=== PATIENT | male | born 1965 | race Caucasian/White ===

== ENCOUNTER → 2016-08-08 | Outpatient (CLI) | payer OTHER ==
[2016-08-08 10:55] LABS: WHITE BLOOD COUNT 6.9 K/mm3 (4.0-10.0)
[2016-08-08 10:56] LABS: MEAN CORPUSCULAR HEMOGLOBIN 41.2 pg (27.0-33.0); MEAN CORPUSCULAR HGB CONC 35.3 g/dl (32.0-36.5); MEAN CORPUSCULAR VOLUME 116.7 fl (80.0-96.0); RED CELL DISTRIBUTION WIDTH 14.5 % (11.5-14.5)
[2016-08-08 11:33] LABS: ALBUMIN 3.6 GM/DL (3.2-5.2); ALBUMIN/GLOBULIN RATIO 1.09 (1.00-1.93); ALKALINE PHOSPHATASE 91 U/L (45-117); ALT/SGPT 26 U/L (12-78); ANION GAP 9 MEQ/L (8-16); AST/SGOT 20 U/L (15-37); BILIRUBIN,DIRECT 0.1 MG/DL (0.0-0.2); BILIRUBIN,TOTAL 0.4 MG/DL (0.2-1.0); BLOOD UREA NITROGEN 11 MG/DL (7-18); CALCIUM LEVEL 8.6 MG/DL (8.5-10.1); CARBON DIOXIDE LEVEL 27 MEQ/L (21-32); CHLORIDE LEVEL 106 MEQ/L (98-107); CREATININE FOR GFR 1.31 MG/DL (0.70-1.30); GLOMERULAR FILTRATION RATE > 60.0 (>56); GLUCOSE, FASTING 80 MG/DL (70-105); POTASSIUM SERUM 4.5 MEQ/L (3.5-5.1); SODIUM LEVEL 142 MEQ/L (136-145); THYROXINE (T4) 6.7 UG/DL (4.5-12.0); TOTAL PROTEIN 6.9 GM/DL (6.4-8.2)
--- NOTE | 2016-08-08 20:43 | ECGEPIP ---
Stationary ECG Study [facility] Test Date: 2016-08-08 Pat Name: SEAMUS POSADA Department: Room: - Gender: M [place] Operator: ALFONSO : 1965 Requested By: Ivana Frost Order Number: [id number] Reading MD: Brandon Bonner Measurements Intervals [place] Rate: 62 P: 51 ND: 127 QRS: 12 QRSD: 97 T: 58 QT: 383 QTc: 391 Interpretive Statements SINUS RHYTHM WITH SINUS ARRHYTHMIA Low voltages NONSPECIFIC T-WAVE ABNORMALITY Comparison tracing not on file Electronically Signed On 08-08-2016 20:42:49 EST by Brandon Bonner
== END ==
LOC: M LAB 10:05
PROVIDERS: ATTEND Nurse Practitioner Psychiatric/Mental Health
DX: F41.9 Anxiety disorder, unspecified (principal); F32.9 Major depressive disorder, single episode, unspecified; R07.9 Chest pain, unspecified

== ENCOUNTER → 2016-10-06 | Outpatient (CLI) | payer OTHER ==
--- NOTE | 2016-10-06 10:39 | REP ---
Right upper quadrant sonography: History: Alcoholic cirrhosis of the liver without ascites. Findings: Scanning through the right upper quadrant of the abdomen demonstrates normal liver size. The liver is homogeneous except for a small 2 mm echogenic focus in the parenchyma of the right lobe consistent with a granuloma. No hepatic mass lesion is seen. There is no visible ascites in the right upper quadrant. The pancreas is obscured by abdominal gas. Common bile duct is normal measuring 0.4 cm in greatest diameter. There are two mobile gallstones in the dependent portion of the gallbladder. The gallbladder is small and contracted. The patient admitted to having toast with peanut butter for breakfast on the morning of the exam and not following the n.p.o. portion of the prep. No right renal abnormality is noted. The right kidney measures 12.0 x 5.0 x 4.9 cm. Impression: Cholelithiasis. Small granulomatous calcification in the liver. Otherwise negative. Signed by Atul Arnold MD 10/06/2016 10:46 A
== END ==
LOC: M RAD 09:07
PROVIDERS: ATTEND Internal Medicine Infectious Disease
DX: K70.30 Alcoholic cirrhosis of liver without ascites (principal); K80.20 Calculus of gallbladder without cholecystitis without obstruction

== ENCOUNTER → 2016-10-26 | Outpatient (REF) | payer OTHER ==
[2016-10-26 13:15] LABS: ALBUMIN 3.9 GM/DL (3.2-5.2); ALBUMIN/GLOBULIN RATIO 1.26 (1.00-1.93); ALKALINE PHOSPHATASE 80 U/L (45-117); ALT/SGPT 27 U/L (12-78); ANION GAP 6 MEQ/L (8-16); AST/SGOT 19 U/L (15-37); BILIRUBIN,TOTAL 0.5 MG/DL (0.2-1.0); BLOOD UREA NITROGEN 9 MG/DL (7-18); CARBON DIOXIDE LEVEL 28 MEQ/L (21-32); CHLORIDE LEVEL 106 MEQ/L (98-107); CREATININE FOR GFR 0.92 MG/DL (0.70-1.30); GLOMERULAR FILTRATION RATE > 60.0 (>56); GLUCOSE, FASTING 87 MG/DL (70-105); POTASSIUM SERUM 4.3 MEQ/L (3.5-5.1); SODIUM LEVEL 140 MEQ/L (136-145)
[2016-10-27 14:16] LABS: %CD3+CD4+CD8+ 1.3 % (Not Estab.); %CD3+CD4+CD8- 10.9 % (Not Estab.); %CD3+CD4-CD8+ 58.7 % (Not Estab.); %CD3+CD4-CD8- 1.5 % (Not Estab.); ABS CD3+CD4+CD8+ 18 /uL (Not Estab.); ABS CD3+CD4+CD8- 153 /uL (Not Estab.); ABS CD3+CD4-CD8+ 822 /uL (Not Estab.); ABS CD3+CD4-CD8- 21 /uL (Not Estab.); CD4/CD8 NYSDOH RATIO 0.19 (Not Estab.); Eosinophils 3 % (.); HCT 43.5 % (37.5-51.0); HEMATOLOGY COMMENTS Note: (.); HGB 15.7 g/dL (12.6-17.7); Monocytes 7 % (.); Neutrophils 67 % (.); WBC 6.7 x10E3/uL (3.4-10.8)
== END ==
LOC: M SFHCPLAZ 09:03
PROVIDERS: ATTEND Internal Medicine Infectious Disease
DX: B20 Human immunodeficiency virus [HIV] disease (principal); K70.30 Alcoholic cirrhosis of liver without ascites; Z12.5 Encounter for screening for malignant neoplasm of prostate; E29.1 Testicular hypofunction

== ENCOUNTER → 2017-04-19 | Outpatient (REF) | payer OTHER ==
[2017-04-19 12:40] LABS: INR 0.93
[2017-04-19 12:52] LABS: ALBUMIN 3.9 GM/DL (3.2-5.2); ALBUMIN/GLOBULIN RATIO 1.18 (1.00-1.93); ALKALINE PHOSPHATASE 74 U/L (45-117); ALT/SGPT 27 U/L (12-78); ANION GAP 9 MEQ/L (8-16); AST/SGOT 24 U/L (15-37); BILIRUBIN,TOTAL 0.6 MG/DL (0.2-1.0); BLOOD UREA NITROGEN 8 MG/DL (7-18); CALCIUM LEVEL 9.2 MG/DL (8.5-10.1); CARBON DIOXIDE LEVEL 26 MEQ/L (21-32); CHLORIDE LEVEL 106 MEQ/L (98-107); CREATININE FOR GFR 0.85 MG/DL (0.70-1.30); GLOMERULAR FILTRATION RATE > 60.0 (>56); GLUCOSE, FASTING 91 MG/DL (70-105); POTASSIUM SERUM 4.5 MEQ/L (3.5-5.1); SODIUM LEVEL 141 MEQ/L (136-145); TOTAL PROTEIN 7.2 GM/DL (6.4-8.2)
[2017-04-23 14:11] LABS: Eosinophils 5 % (.); HCT 43.9 % (37.5-51.0); HEMATOLOGY COMMENTS Note: (.); HGB 16.1 g/dL (12.6-17.7); Monocytes 8 % (.); Neutrophils 60 % (.); WBC 5.6 x10E3/uL (3.4-10.8)
== END ==
LOC: M SFHCPLAZ 10:18
PROVIDERS: ATTEND Internal Medicine Infectious Disease
DX: K70.30 Alcoholic cirrhosis of liver without ascites (principal); B20 Human immunodeficiency virus [HIV] disease

== ENCOUNTER → 2017-08-07 | Outpatient (REF) | payer OTHER ==
[2017-08-07 12:38] LABS: APPEARANCE, URINE CLEAR (CLEAR); BACTERIA, URINE AUTO NEGATIVE (NEGATIVE); BILIRUBIN, URINE AUTO NEGATIVE (NEGATIVE); BLOOD, URINE BLOOD NEGATIVE (NEGATIVE); COLOR, URINE YELLOW (YELLOW); GLUCOSE, URINE (UA) AUTO NEGATIVE (NEGATIVE); KETONE, URINE AUTO NEGATIVE (NEGATIVE); LEUKOCYTE ESTERASE, URINE AUTO NEGATIVE (NEGATIVE); MUCUS, URINE SMALL (NEGATIVE); NITRITE, URINE AUTO NEGATIVE (NEGATIVE); PROTEIN, URINE AUTO NEGATIVE (NEGATIVE); RBC, URINE AUTO 0 /HPF (0-3); SPECIFIC GRAVITY URINE AUTO 1.008 (1.002-1.035); SQUAMOUS EPITHELIAL CELL UR AU 0 /HPF (0-6); UROBILINOGEN, URINE AUTO 0.2 mg/dL (0.0-2.0); WBC, URINE AUTO 0 /HPF (0-3)
[2017-08-07 12:45] LABS: INR 0.95; PROTHROMBIN TIME 12.7 SECONDS (12.4-14.5)
[2017-08-07 13:06] LABS: ALBUMIN 3.9 GM/DL (3.2-5.2); ALBUMIN/GLOBULIN RATIO 1.18 (1.00-1.93); ALKALINE PHOSPHATASE 83 U/L (45-117); ALT/SGPT 23 U/L (12-78); ANION GAP 10 MEQ/L (8-16); AST/SGOT 18 U/L (7-37); BILIRUBIN,TOTAL 0.6 MG/DL (0.2-1.0); BLOOD UREA NITROGEN 10 MG/DL (7-18); CALCIUM LEVEL 8.4 MG/DL (8.5-10.1); CARBON DIOXIDE LEVEL 26 MEQ/L (21-32); CHLORIDE LEVEL 106 MEQ/L (98-107); CREATININE FOR GFR 0.82 MG/DL (0.70-1.30); GLOMERULAR FILTRATION RATE > 60.0 (>56); GLUCOSE, FASTING 87 MG/DL (70-105); POTASSIUM SERUM 4.3 MEQ/L (3.5-5.1); SODIUM LEVEL 142 MEQ/L (136-145); TOTAL PROTEIN 7.2 GM/DL (6.4-8.2)
[2017-08-07 14:51] LABS: CHLAMYDIA DNA AMPLIFICATION NEGATIVE (NEGATIVE); GC DNA AMPLIFICATION NEGATIVE (NEGATIVE)
[2017-08-09 14:20] LABS: % CD8 Pos Lymph 56.9 % (12.0-35.5); %CD4 Pos Lymphs 13.9 % (30.8-58.5); ABS Basophils 0.1 x10E3/uL (0.0-0.2); ABS Eosinophils 0.1 x10E3/uL (0.0-0.4); ABS Lymphs 1.2 x10E3/uL (0.7-3.1); ABS Monocytes 0.3 x10E3/uL (0.1-0.9); ABS Neutophils 2.6 x10E3/uL (1.4-7.0); Abs CD4 Helper 167 /uL (359-1519); Abs CD8 Suppres 683 /uL (109-897); CD4/CD8 Ratio 0.24 (0.92-3.72); Eosinophils 3 % (Not Estab.); HCT 42.2 % (37.5-51.0); HEMATOLOGY COMMENTS Note: (.); HGB 15.5 g/dL (13.0-17.7); HIV-1 RNA PCR QUANT 2 LC550285 <20 copies/mL (.); Immature Grans 1 % (Not Estab.); Lymphocytes 28 % (Not Estab.); MCH 45.1 pg (26.6-33.0); MCHC 36.7 g/dL (31.5-35.7); MCV 123 fL (79-97); Monocytes 7 % (Not Estab.); Neutrophils 60 % (Not Estab.); Platelets 262 x10E3/uL (150-379); QUANTIFERON GOLD TB Negative (Negative); RBC 3.44 x10E6/uL (4.14-5.80); RDW 13.4 % (12.3-15.4); TB Test (QFT) Antigen Minus Ni 0.03 IU/mL (.); TB Test (QFT) Mitogen 6.81 IU/mL (.); TB Test (QFT) Nil 0.07 IU/mL (.); TESTOSTERONE FREE (DIRECT) 18.8 pg/mL (7.2-24.0); WBC 4.3 x10E3/uL (3.4-10.8)
[2017-08-10 16:40] LABS: ALPHA FETOPROTEIN TUMOR QUANT 3.6 NG/ML (<8.1)
== END ==
LOC: M SFHCPLAZ 09:36
DX: B20 Human immunodeficiency virus [HIV] disease (principal); K70.30 Alcoholic cirrhosis of liver without ascites; F33.1 Major depressive disorder, recurrent, moderate; R68.82 Decreased libido
CPT/HCPCS: 84403

== ENCOUNTER → 2017-08-23 | Outpatient (CLI) | payer OTHER | LOC: M RAD 08:47 | DX: K70.30 Alcoholic cirrhosis of liver without ascites (principal) | CPT/HCPCS: 76705 ==

== ENCOUNTER 2017-09-15 10:06 | Emergency (ER) | payer OTHER ==
[2017-09-15] MEDS: GLUCAGON FOR INJ 1 MG VIAL (J1610) IV (12:18)
== END 2017-09-15 17:30 | disposition home or self-care (01) ==
LOC: M ED 10:06
DX: T18.120A Food in esophagus causing compression of trachea, initial encounter (principal); Y92.89 Other specified places as the place of occurrence of the external cause; B20 Human immunodeficiency virus [HIV] disease; K70.30 Alcoholic cirrhosis of liver without ascites; F33.9 Major depressive disorder, recurrent, unspecified; F41.9 Anxiety disorder, unspecified; F17.210 Nicotine dependence, cigarettes, uncomplicated; Z79.899 Other long term (current) drug therapy; Z79.82 Long term (current) use of aspirin
CPT/HCPCS: J1610

== ENCOUNTER → 2017-11-27 | Outpatient (REF) | payer OTHER ==
[2017-11-27 12:17] LABS: INR 0.94; PROTHROMBIN TIME 12.7 SECONDS (12.4-14.5)
[2017-11-27 12:35] LABS: ALBUMIN 3.9 GM/DL (3.2-5.2); ALBUMIN/GLOBULIN RATIO 1.15 (1.00-1.93); ALKALINE PHOSPHATASE 92 U/L (45-117); ALT/SGPT 22 U/L (12-78); ANION GAP 7 MEQ/L (8-16); AST/SGOT 19 U/L (7-37); BILIRUBIN,TOTAL 0.6 MG/DL (0.2-1.0); BLOOD UREA NITROGEN 12 MG/DL (7-18); CALCIUM LEVEL 8.6 MG/DL (8.5-10.1); CARBON DIOXIDE LEVEL 29 MEQ/L (21-32); CHLORIDE LEVEL 105 MEQ/L (98-107); CREATININE FOR GFR 0.96 MG/DL (0.70-1.30); GLOMERULAR FILTRATION RATE > 60.0 (>56); GLUCOSE, FASTING 93 MG/DL (70-100); POTASSIUM SERUM 4.7 MEQ/L (3.5-5.1); SODIUM LEVEL 141 MEQ/L (136-145); TOTAL PROTEIN 7.3 GM/DL (6.4-8.2)
[2017-11-27 12:38] LABS: ALPHA FETOPROTEIN TUMOR QUANT 2.7 NG/ML (<8.1)
[2017-11-29 14:14] LABS: % CD8 Pos Lymph 60.2 % (12.0-35.5); ABS Eosinophils 0.2 x10E3/uL (0.0-0.4); ABS Lymphs 1.8 x10E3/uL (0.7-3.1); ABS Monocytes 0.6 x10E3/uL (0.1-0.9); ABS Neutophils 4.5 x10E3/uL (1.4-7.0); Abs CD4 Helper 234 /uL (359-1519); Abs CD8 Suppres 1084 /uL (109-897); CD4/CD8 Ratio 0.22 (0.92-3.72); Eosinophils 3 % (Not Estab.); HCT 41.6 % (37.5-51.0); HEMATOLOGY COMMENTS Note: (.); HGB 14.8 g/dL (13.0-17.7); HIV-1 RNA PCR QUANT 2 LC550285 <20 copies/mL (.); Immature Grans 0 % (Not Estab.); Lymphocytes 26 % (Not Estab.); MCH 44.2 pg (26.6-33.0); MCHC 35.6 g/dL (31.5-35.7); MCV 124 fL (79-97); Monocytes 8 % (Not Estab.); Neutrophils 63 % (Not Estab.); Platelets 250 x10E3/uL (150-379); RBC 3.35 x10E6/uL (4.14-5.80); RDW 14.2 % (12.3-15.4); WBC 7.2 x10E3/uL (3.4-10.8)
== END ==
LOC: M SFHCPLAZ 10:06
DX: B20 Human immunodeficiency virus [HIV] disease (principal); K70.30 Alcoholic cirrhosis of liver without ascites; M54.5 Low back pain
CPT/HCPCS: 80053

== ENCOUNTER → 2018-02-28 | Outpatient (CLI) | payer OTHER | LOC: M RAD 07:51 | DX: M51.36 Other intervertebral disc degeneration, lumbar region (principal); M51.26 Other intervertebral disc displacement, lumbar region; M48.061 Spinal stenosis, lumbar region without neurogenic claudication | CPT/HCPCS: 72148 ==

== ENCOUNTER → 2018-05-27 | Outpatient (REF) | payer OTHER ==
[2018-05-27 14:59] LABS: ALBUMIN 3.9 GM/DL (3.2-5.2); ALBUMIN/GLOBULIN RATIO 1.11 (1.00-1.93); ALKALINE PHOSPHATASE 88 U/L (45-117); ALT/SGPT 32 U/L (12-78); ANION GAP 6 MEQ/L (8-16); AST/SGOT 22 U/L (7-37); BILIRUBIN,TOTAL 0.6 MG/DL (0.2-1.0); BLOOD UREA NITROGEN 12 MG/DL (7-18); CALCIUM LEVEL 9.4 MG/DL (8.5-10.1); CARBON DIOXIDE LEVEL 30 MEQ/L (21-32); CHLORIDE LEVEL 105 MEQ/L (98-107); CREATININE FOR GFR 0.99 MG/DL (0.70-1.30); GLOMERULAR FILTRATION RATE > 60.0 (>56); GLUCOSE, FASTING 83 MG/DL (70-100); HEPATITIS B SURFACE ANTIBODY NEGATIVE (POSITIVE); POTASSIUM SERUM 5.3 MEQ/L (3.5-5.1); SODIUM LEVEL 141 MEQ/L (136-145); TOTAL PROTEIN 7.4 GM/DL (6.4-8.2)
[2018-05-27 15:18] LABS: HEPATITIS C VIRUS ABY INDEX < 0.0 INDEX (<0.8)
[2018-05-30 00:07] LABS: %CD4 Pos Lymphs 12.9 % (30.8-58.5); ABS Basophils 0.1 x10E3/uL (0.0-0.2); ABS Eosinophils 0.2 x10E3/uL (0.0-0.4); ABS Lymphs 1.4 x10E3/uL (0.7-3.1); ABS Monocytes 0.4 x10E3/uL (0.1-0.9); ABS Neutophils 3.2 x10E3/uL (1.4-7.0); Abs CD4 Helper 181 /uL (359-1519); Abs CD8 Suppres 868 /uL (109-897); CD4/CD8 Ratio 0.21 (0.92-3.72); Eosinophils 4 % (Not Estab.); HCT 43.4 % (37.5-51.0); HEMATOLOGY COMMENTS Note: (.); HEPATITIS A IgG TOTAL Negative (Negative); HGB 15.6 g/dL (13.0-17.7); HIV-1 RNA PCR QUANT 2 LC550285 70 copies/mL (.); HIV-1 RNA PCR QUANT 3 LC550285 1.845 (.); Immature Grans 0 % (Not Estab.); Lymphocytes 26 % (Not Estab.); MCH 45.1 pg (26.6-33.0); MCHC 35.9 g/dL (31.5-35.7); MCV 125 fL (79-97); Monocytes 7 % (Not Estab.); Neutrophils 62 % (Not Estab.); Platelets 268 x10E3/uL (150-379); RBC 3.46 x10E6/uL (4.14-5.80); RDW 14.4 % (12.3-15.4); WBC 5.2 x10E3/uL (3.4-10.8)
== END ==
LOC: M SFHCPLAZ 11:34
DX: B20 Human immunodeficiency virus [HIV] disease (principal); K70.30 Alcoholic cirrhosis of liver without ascites

== ENCOUNTER → 2018-07-02 | Outpatient (REF) | LOC: M SMT 11:38 | DX: Z02.71 Encounter for disability determination (principal) ==

== ENCOUNTER → 2018-11-25 | Outpatient (REF) | payer OTHER ==
[~2018-11-25] MED LIST: ASPI81TA26 PO; BACL10TA2 PO; CITA40TA4 PO; HYDR-643 PO; IBUP1TAB7 PO; LAMI1TAB PO; PREZ1TAB PO; RISP0.5T3 PO; TIVI1TAB PO
[2018-11-25 12:43] LABS: ALBUMIN 3.8 GM/DL (3.2-5.2); ALT/SGPT 22 U/L (12-78); BILIRUBIN,TOTAL 0.5 MG/DL (0.2-1.0); BLOOD UREA NITROGEN 16 MG/DL (7-18); CALCIUM LEVEL 8.9 MG/DL (8.5-10.1); CARBON DIOXIDE LEVEL 29 MEQ/L (21-32); CHLORIDE LEVEL 105 MEQ/L (98-107); CHOLESTEROL LEVEL 155 MG/DL (<200); CHOLESTEROL RISK RATIO 4.558 (<5); CREATININE FOR GFR 0.95 MG/DL (0.70-1.30); GLOMERULAR FILTRATION RATE > 60.0 (>56); GLUCOSE, FASTING 99 MG/DL (70-100); HDL CHOLESTEROL 34 MG/DL (>40); LDL CHOLESTEROL 44 MG/DL (<100); NON-HDL-C 121 MG/DL; POTASSIUM SERUM 4.8 MEQ/L (3.5-5.1); SODIUM LEVEL 139 MEQ/L (136-145); TOTAL PROTEIN 6.7 GM/DL (6.4-8.2); TRIGLYCERIDES LEVEL 383 MG/DL (<150)
[2018-11-25 12:46] LABS: APPEARANCE, URINE CLEAR (CLEAR); BACTERIA, URINE AUTO NEGATIVE (NEGATIVE); BILIRUBIN, URINE AUTO NEGATIVE (NEGATIVE); BLOOD, URINE BLOOD NEGATIVE (NEGATIVE); COLOR, URINE YELLOW (YELLOW); GLUCOSE, URINE (UA) AUTO NEGATIVE (NEGATIVE); KETONE, URINE AUTO TRACE mg/dL (NEGATIVE); LEUKOCYTE ESTERASE, URINE AUTO NEGATIVE (NEGATIVE); MUCUS, URINE SMALL (NEGATIVE); NITRITE, URINE AUTO NEGATIVE (NEGATIVE); PROTEIN, URINE AUTO NEGATIVE (NEGATIVE); RBC, URINE AUTO 1 /HPF (0-3); SPECIFIC GRAVITY URINE AUTO 1.023 (1.002-1.035); SQUAMOUS EPITHELIAL CELL UR AU 0 /HPF (0-6); WBC, URINE AUTO 0 /HPF (0-3)
[2018-11-25 13:02] LABS: INR 0.95; PROTHROMBIN TIME 12.8 SECONDS (12.1-14.4)
[2018-11-26 14:13] LABS: % CD8 Pos Lymph 61.4 % (12.0-35.5); %CD4 Pos Lymphs 14.6 % (30.8-58.5); ABS Basophils 0.1 x10E3/uL (0.0-0.2); ABS Eosinophils 0.2 x10E3/uL (0.0-0.4); ABS Lymphs 1.5 x10E3/uL (0.7-3.1); ABS Monocytes 0.4 x10E3/uL (0.1-0.9); ABS Neutophils 3.4 x10E3/uL (1.4-7.0); Abs CD4 Helper 219 /uL (359-1519); Abs CD8 Suppres 921 /uL (109-897); CD4/CD8 Ratio 0.24 (0.92-3.72); Eosinophils 3 % (Not Estab.); HCT 42.9 % (37.5-51.0); HGB 15.1 g/dL (13.0-17.7); Immature Grans 0 % (Not Estab.); Lymphocytes 27 % (Not Estab.); MCH 43.1 pg (26.6-33.0); MCHC 35.2 g/dL (31.5-35.7); MCV 123 fL (79-97); Monocytes 7 % (Not Estab.); Neutrophils 62 % (Not Estab.); Platelets 241 x10E3/uL (150-379); RDW 14.2 % (12.3-15.4); WBC 5.6 x10E3/uL (3.4-10.8)
[2018-11-28 00:06] LABS: HIV-1 RNA PCR QUANT 2 LC550285 <20 copies/mL (.)
== END ==
LOC: M SFHCPLAZ 08:01
PROVIDERS: ATTEND Internal Medicine Infectious Disease
DX: B20 Human immunodeficiency virus [HIV] disease (principal); K70.30 Alcoholic cirrhosis of liver without ascites

== ENCOUNTER → 2019-05-26 | Outpatient (REF) | payer OTHER ==
[2019-05-26 10:37] LABS: ALBUMIN 3.7 GM/DL (3.2-5.2); ALT/SGPT 20 U/L (12-78); BILIRUBIN,TOTAL 0.5 MG/DL (0.2-1.0); BLOOD UREA NITROGEN 12 MG/DL (7-18); CALCIUM LEVEL 9.1 MG/DL (8.5-10.1); CARBON DIOXIDE LEVEL 28 MEQ/L (21-32); CHLORIDE LEVEL 107 MEQ/L (98-107); CHOLESTEROL LEVEL 170 MG/DL (<200); CHOLESTEROL RISK RATIO 3.953 (<5); CREATININE FOR GFR 0.97 MG/DL (0.70-1.30); GLOMERULAR FILTRATION RATE > 60.0 (>56); GLUCOSE, FASTING 82 MG/DL (70-100); HDL CHOLESTEROL 43 MG/DL (>40); LDL CHOLESTEROL 72 MG/DL (<100); NON-HDL-C 127 MG/DL; POTASSIUM SERUM 4.8 MEQ/L (3.5-5.1); SODIUM LEVEL 138 MEQ/L (136-145); TOTAL PROTEIN 7.1 GM/DL (6.4-8.2); TRIGLYCERIDES LEVEL 277 MG/DL (<150)
[2019-05-29 00:07] LABS: % CD8 Pos Lymph 61.3 % (12.0-35.5); %CD4 Pos Lymphs 13.6 % (30.8-58.5); ABS Basophils 0.1 x10E3/uL (0.0-0.2); ABS Eosinophils 0.2 x10E3/uL (0.0-0.4); ABS Lymphs 1.4 x10E3/uL (0.7-3.1); ABS Monocytes 0.4 x10E3/uL (0.1-0.9); ABS Neutophils 3.7 x10E3/uL (1.4-7.0); Abs CD4 Helper 190 /uL (359-1519); Abs CD8 Suppres 858 /uL (109-897); CD4/CD8 Ratio 0.22 (0.92-3.72); Eosinophils 3 % (Not Estab.); HCT 42.1 % (37.5-51.0); HGB 14.8 g/dL (13.0-17.7); HIV-1 RNA PCR QUANT 2 LC550285 <20 copies/mL (.); Immature Grans 0 % (Not Estab.); Lymphocytes 25 % (Not Estab.); MCHC 35.2 g/dL (31.5-35.7); MCV 125 fL (79-97); Monocytes 8 % (Not Estab.); Neutrophils 63 % (Not Estab.); Platelets 279 x10E3/uL (150-450); RBC 3.36 x10E6/uL (4.14-5.80); RDW 14.6 % (12.3-15.4); WBC 5.8 x10E3/uL (3.4-10.8)
== END ==
LOC: M SFHCPLAZ 08:20
PROVIDERS: ATTEND Internal Medicine Infectious Disease
DX: B20 Human immunodeficiency virus [HIV] disease (principal); K70.30 Alcoholic cirrhosis of liver without ascites

== ENCOUNTER → 2024-11-27 | Outpatient (CLI) | payer MEDICAID, OTHER ==
[~2024-11-27] MED LIST changes: -CITA40TA4 PO; +CITA40TA7 PO; -RISP0.5T3 PO; +RISP0.5T82 PO
[2024-11-27 17:01] LABS: INR 0.87; PROTHROMBIN TIME 12.1 SECONDS (12.5-14.5)
[2024-11-27 18:33] LABS: APPEARANCE, URINE CLEAR (CLEAR); BACTERIA, URINE AUTO NEGATIVE (NEGATIVE); BILIRUBIN, URINE AUTO NEGATIVE (NEGATIVE); BLOOD, URINE BLOOD NEGATIVE (NEGATIVE); COLOR, URINE YELLOW (YELLOW); GLUCOSE, URINE (UA) AUTO NEGATIVE (NEGATIVE); KETONE, URINE AUTO NEGATIVE (NEGATIVE); LEUKOCYTE ESTERASE, URINE AUTO NEGATIVE (NEGATIVE); NITRITE, URINE AUTO NEGATIVE (NEGATIVE); PROTEIN, URINE AUTO NEGATIVE (NEGATIVE); RBC, URINE AUTO 0 /HPF (0-3); SPECIFIC GRAVITY URINE AUTO 1.012 (1.002-1.035); SQUAMOUS EPITHELIAL CELL UR AU 0 /HPF (0-6); UROBILINOGEN, URINE AUTO 0.2 mg/dL (0.0-2.0); WBC, URINE AUTO 0 /HPF (0-3)
[2024-11-27 18:38] LABS: BASO % 0.6 % (0.0-1.0); EOS # 0.6 10^3/uL (0.0-0.5); EOS % 9.6 % (0.0-3.0); HEMATOCRIT 43.3 % (42.0-52.0); HEMOGLOBIN 14.6 g/dl (13.5-17.5); LYMPH # 1.4 10^3/uL (1.5-5.0); LYMPH % 22.5 % (24.0-44.0); MEAN CORPUSCULAR HEMOGLOBIN 30.8 pg (27.0-33.0); MEAN CORPUSCULAR HGB CONC 33.7 g/dl (32.0-36.5); MEAN CORPUSCULAR VOLUME 91.4 fl (80.0-96.0); MONO # 0.5 10^3/uL (0.0-0.8); NEUTROPHILS # 3.7 10^3/uL (1.5-8.5); PLATELET COUNT, AUTOMATED 142 10^3/uL (150-450); RED BLOOD COUNT 4.74 10^6/uL (4.30-6.10); WHITE BLOOD COUNT 6.3 10^3/uL (4.0-10.0)
[2024-11-27 18:41] LABS: ALBUMIN 3.4 G/DL (3.2-5.2); ALKALINE PHOSPHATASE 119 U/L (40-129); ALT/SGPT 40 U/L (7.0-40); AST/SGOT 25 U/L (<34); BILIRUBIN,TOTAL 0.2 MG/DL (0.3-1.2); BLOOD UREA NITROGEN 16 MG/DL (9-23); CALCIUM LEVEL 8.5 MG/DL (8.5-10.1); CARBON DIOXIDE LEVEL 29 MMOL/L (20-31); CHLORIDE LEVEL 101 MMOL/L (98-107); CREATININE FOR GFR 0.97 MG/DL (0.70-1.30); GLOMERULAR FILTRATION RATE > 90.0 (>56); GLUCOSE, FASTING 90 MG/DL (60-100); POTASSIUM SERUM 4.1 MMOL/L (3.5-5.1); SODIUM LEVEL 140 MMOL/L (136-145); TOTAL PROTEIN 6.9 G/DL (5.7-8.2)
[2024-11-29 12:07] LABS: % CD4+ LYMPHS 15.8 % (30.8-58.5); ABSOLUTE CD4 HELPER 221 /uL (359-1519); BASOPHILS 1 % (Not Estab.); BASOPHILS ABSOLUTE 0.1 x10E3/uL (0.0-0.2); EOSINOPHILS 9 % (Not Estab.); EOSINOPHILS ABSOLUTE 0.5 x10E3/uL (0.0-0.4); HCT 42.3 % (37.5-51.0); HGB 14.2 g/dL (13.0-17.7); Immature Grans 0 % (Not Estab.); LYMPHOCYTES 23 % (Not Estab.); LYMPHOCYTES ABSOLUTE 1.4 x10E3/uL (0.7-3.1); MCH 30.9 pg (26.6-33.0); MCHC 33.6 g/dL (31.5-35.7); MCV 92 fL (79-97); MONOCYTES 9 % (Not Estab.); MONOCYTES ABSOLUTE 0.5 x10E3/uL (0.1-0.9); NEUTROPHILS 58 % (Not Estab.); NEUTROPHILS ABSOLUTE 3.5 x10E3/uL (1.4-7.0); PLT 134 x10E3/uL (150-450); RBC 4.59 x10E6/uL (4.14-5.80); RDW 13.2 % (11.6-15.4); WBC 5.9 x10E3/uL (3.4-10.8)
[2024-11-30 06:12] LABS: HIV-1 RNA PCR QUANT 2 488000 copies/mL (NOT DETECTED); HIV-1 RNA PCR QUANT 3 5.69 (NOT DETECTED)
== END ==
LOC: M PLALAB 14:09
PROVIDERS: ATTEND Internal Medicine Infectious Disease
DX: K70.30 Alcoholic cirrhosis of liver without ascites (principal); B20 Human immunodeficiency virus [HIV] disease

== ENCOUNTER → 2025-03-03 | Outpatient (CLI) | payer MEDICAID, OTHER ==
[2025-03-03 14:32] LABS: ALT/SGPT 19.0 U/L (7.0-40); AST/SGOT 22.0 U/L (<34); CALCIUM LEVEL 9.1 MG/DL (8.5-10.1); CARBON DIOXIDE LEVEL 29.0 MMOL/L (20-31); CHLORIDE LEVEL 106.0 MMOL/L (98-107); CREATININE FOR GFR 0.99 MG/DL (0.70-1.30); GLOMERULAR FILTRATION RATE 88.3 (>56); POTASSIUM SERUM 4.4 MMOL/L (3.5-5.1); SODIUM LEVEL 142.0 MMOL/L (136-145)
[2025-03-04 10:21] LABS: HIV-1 RNA PCR QUANT 2 1020 copies/mL (NOT DETECTED); HIV-1 RNA PCR QUANT 3 3.01 (NOT DETECTED)
[2025-03-05 14:27] LABS: % CD4 14 % (30-61); %CD8 59 % (12-42); ABSOLUTE CD4 CELLS 223 cells/uL (490-1740); ABSOLUTE CD8 CELLS 961 cells/uL (180-1170); ABSOLUTE LYMPHOCYTES 1617 cells/uL (850-3900); CD4 CD8 RATIO 0.23 (0.86-5.00)
== END ==
LOC: M PLALAB 10:46
PROVIDERS: ATTEND Internal Medicine Infectious Disease
DX: B20 Human immunodeficiency virus [HIV] disease (principal)